=== PATIENT | female | born 2000 | race African-American/Black ===

== ENCOUNTER 2025-01-16 00:49 | Emergency (ER) | payer MEDICAID, OTHER ==
[~2025-01-16] VITALS: Ht 167.6 cm; Wt 69.0 kg
[~2025-01-16 00:49] MED LIST: no meds
[2025-01-16 01:01] VITALS: O2SAT 100
[2025-01-16] MEDS: SODIUM CHLORIDE 0.9% 1,000 ML IV ONE (02:28)
[2025-01-16 02:38] LABS: BASOPHILS % 0.4 % (0.0-2.0); EOSINOPHILS % 0.2 % (0.0-5.0); HEMATOCRIT. 37.9 % (36.0-48.0); HEMOGLOBIN. 12.7 g/dL (12.0-16.0); LYMPHOCYTES % 8.2 % (20.0-50.0); MEAN PLATELET VOLUME 8.0 fl (7.4-10.4); MONOCYTES % 4.9 % (2.0-8.0); NEUTROPHILS % 86.3 % (40.0-76.0); PLATELET 260 x1000/uL (130-400); RED BLOOD CELL COUNT 4.25 mill/uL (4.2-5.4); RED CELL DISTRIBUTION WIDTH 13.6 % (11.6-14.6)
[2025-01-16 03:08] LABS: CREATININE 0.8 mg/dL (0.6-1.0)
[2025-01-16 03:09] LABS: UREA NITROGEN BLOOD 6 mg/dL (9-23)
[2025-01-16 03:10] LABS: ASPARTATE AMINOTRANSFERASE 11 IU/L (<34)
[2025-01-16 03:11] LABS: BILIRUBIN DIRECT 0.2 mg/dL (<=3.0); BILIRUBIN TOTAL 0.6 mg/dL (0.1-1.0); PROTEIN TOTAL 7.4 g/dL (6.0-8.3)
[2025-01-16 03:12] LABS: CLARITY URINE CLEAR (CLEAR); COLOR URINE YELLOW (YELLOW); GLUCOSE URINE NEGATIVE (NEGATIVE); KETONES URINE 3+ (NEGATIVE); LEUKOCYTE ESTERASE URINE NEGATIVE (NEGATIVE); NITRITE URINE NEGATIVE (NEGATIVE); OCCULT BLOOD URINE 3+ (NEGATIVE); PH URINE 6.0 (4.5-8.0); PROTEIN URINE TRACE (NEGATIVE); SPECIFIC GRAVITY URINE 1.032 (1.005-1.030); UROBILINOGEN URINE 0.2 E.U./dL (0.2-1.0)
[2025-01-16 03:23] LABS: BACTERIA URINE TRACE; SQUAMOUS EPITHELIAL CELL URINE FEW /lpf (RARE/1+); WBC URINE 0-2 /hpf (0-2)
[2025-01-16 03:53] VITALS: TEMP 36.9
[2025-01-16 04:26] LABS: B-HCG QUANTITATIVE 8211 mIU/mL (<6)
[2025-01-16 04:41] VITALS: BP 90/46; PULSE 64; RESP 19; O2SAT 99
== END 2025-01-16 05:05 | disposition home or self-care (01) ==
LOC: ER 00:49
DX: O03.9 Complete or unspecified spontaneous abortion without complication (principal); R10.20 Pelvic and perineal pain unspecified side; Z3A.01 Less than 8 weeks gestation of pregnancy
CPT/HCPCS: 80076; 80048; 81003; 84702; 85025; 86850; 86900; 86901; 36415; 76856; 96360; 99284; J7030; Z7610